=== PATIENT | male | born 1970 | race Caucasian/White ===

== ENCOUNTER → 2017-10-22 | Day surgery (SDC) | payer BC ==
[~2017-10-22] MED LIST: BENICAR HCT 401 EAC1 PO; CRESTOR40 MG PO; HYDROCODONE-AP1 EAC6 PO; METFORMIN HCL500 MG PO; NORVASC10 MG PO; OMEPRAZOLE 20 M20 M1 PO; PIOGLITAZONE15 MG; PLAVIX 75 MG TA75 M1 PO; TRESIBA FL200 UNIT/1 SUBQ; TRICOR145 MG PO; VICTOZA0.6 MG/0.1; VITAMIN D; ZETIA10 MG PO
[2017-10-22 10:03] LABS: HEMATOCRIT 39.4 % (42.0-52.0); HEMOGLOBIN 13.5 gm/dL (14.0-18.0); MCH 31.1 pg (26.0-34.0); MCHC 34.3 g/dL (28.0-37.0); MCV 90.7 fL (80.0-100.0); MPV 8.5 fl. (7.2-11.1); RBC 4.35 mil/uL (4.50-6.00); RDW-CV 13.4 % (10.5-14.5); WBC 8.3 thou/uL (4.0-11.0)
[2017-10-22 10:10] LABS: CALCIUM 9.3 mg/dL (8.5-10.1)
[2017-10-22 10:18] LABS: INR 1.1; PROTIME 10.3 Seconds (9.20-11.50)
--- NOTE | 2017-10-22 12:56 | EKG ---
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: : 1970 Requested By: Jose M Holm Order Number: [id number] Reading MD: Hong Salvador Measurements Intervals [place] Rate: 80 P: 19 VT: 156 QRS: 50 QRSD: 92 T: 37 QT: 369 QTc: 426 Interpretive Statements Sinus rhythm ST elev, probable normal early repol pattern No previous ECG available for comparison Electronically Signed On 10-22-2017 12:55:55 CERTIFIED FIRE INVESTIGATOR by Hong Salvador [email or web address] <ELECTRONICALLY SIGNED> By: Hong Salvador MD, [facility] 10/22/17 1255 1111 [facility] Hong Salvador MD, FACC /EPI
--- NOTE | 2017-10-25 10:54 | S ---
[place] [address] SURGICAL PATH RPT PROCEDURE Name: LINCOLN NICHOLAS Room: [facility]#: [id number] Admission: 10/22/17 Date of : 70 Discharge: Report #: [id number] Path Case #: [id number] PATHOLOGY REPORT COLLECTION DATE: 10/22/2017 RECEIVED DATE: 10/22/2017 SUBMITTING PHYS: Dr. Dony Rahman OTHER PHYS: Dr. Yoandy Norman SPECIMEN(S) RECEIVED: A.Gallbladder with contents * * * * * * * * * * * * FINAL DIAGNOSIS: Gallbladder with contents: - Chronic cholecystitis, cholesterolosis including cholesterol polyp and cholelithiasis. (YUAN:macy; 10/25/2017) PATHOLOGIST: Alex Urrutia M.D. REPORT ELECTRONICALLY SIGNED BY: Alex Urrutia M.D. DATE/TIME: 10/25/2017 10:54 * * * * * * * * * * * * GROSS PATHOLOGY: Received in formalin labeled "L[place] Nicholas, gallbladder with contents," is a 9.6 x 3.9 x 2.4 cm, intact gallbladder with pink-hong, smooth, and partially covered with adhesions serosal surfaces. Opening the gallbladder reveals a toth-brown and velvety mucosa and an average wall thickness of 0.1 cm. There is a single yellow polyp measuring 0.3 x 0.3 cm in the lower neck aspect. Multiple black and gravel-like calculi are present measuring up to 0.5 cm in greatest dimension. Planer [employer] Offbearer sections from the body and fundus are submitted along with the proximal margin in cassette A1. (SDY; 10/22/2017) CLINICAL HISTORY: Gallstones INITIAL CPT CODE(S): A; 01786 Professional services performed by [facility] [address] [place] [address] SURGICAL PATH RPT PROCEDURE Name: LINCOLN NICHOLAS Room: [facility].#: [id number] Admission: 10/22/17 Date of : 70 Discharge: Report #: [id number] Path Case #: [id number] [facility] by [facility] at [address] [place] [address], [facility] [address] [address]. [place] [address] PHONE: [phone] DIRECTOR: Jaret Desai M.D. * * * END OF REPORT * * *
--- NOTE | 2017-11-03 07:49 | OP ---
[facility] [address] [place] [address] OPERATIVE REPORT Name: LINCOLN JEAN Room: [facility]#: [id number] Admission: 10/22/17 Attend Phys: Dony Rahman Discharge: Date of : 70 Report #: [id number] THIS REPORT FOR: //name// CC: Yoandy Rahman DATE OF SERVICE: 10/22/2017 PREOPERATIVE DIAGNOSES: Past history of gallstone pancreatitis and cholelithiasis. POSTOPERATIVE DIAGNOSES: Past history of gallstone pancreatitis and cholelithiasis. OPERATION: Laparoscopic cholecystectomy with intraoperative cholangiogram. SURGEON: Dony Rahman M.D. ANESTHESIA: General. ESTIMATED BLOOD LOSS: Minimal. SPECIMENS: Gallbladder. DESCRIPTION OF PROCEDURE: After informed consent was obtained, the patient was brought to the operating room and placed supine. SCDs were placed and working, preoperative antibiotics were administered and general anesthesia was induced. The abdomen was prepped and draped in the usual sterile fashion. A 10-mm incision was made above the umbilicus. Fascia was incised and a trocar was placed. Pneumoperitoneum was established. Three right upper quadrant 5-mm ports were placed. Gallbladder was grasped and retracted cephalad. Infundibulum was grasped and retracted laterally. I dissected out the cystic duct and the cystic artery. I then made a ductotomy. Cholangiogram catheter was inserted. Cholangiogram was performed. This demonstrated filling of the cystic duct, common hepatic duct, bifurcation of the hepatics, a smooth easy flow into the duodenum as well as the normal common bile duct. There were no filling defects. This was normal. Cholangiogram catheter was removed. The cystic duct was ligated using a clip and a PDS Endoloop. The cystic artery was clipped and ligated leaving a clip on the remaining artery. Gallbladder was then taken off the liver bed with electrocautery. It was placed into an Endopouch and removed. The fascia was then reapproximated with a stamaz-jl-[id number] 0 Vicryl. Skin was closed with 4-0 Monocryl. Incisions were sealed [place] [address] OPERATIVE REPORT Name: LINCOLN JEAN Room: [facility]#: [id number] Admission: 10/22/17 Attend Phys: Dony Rahman Discharge: Date of : 70 Report #: [id number] COMPLICATIONS: None. DISPOSITION: The patient was taken to recovery in satisfactory condition. <ELECTRONICALLY SIGNED> By: Dony Rahman MD 11/03/17 0749 [id number] [id number] Rahman MD /nt
== END | disposition home or self-care (01) ==
LOC: M.SUR 09:38
PROVIDERS: Surgery
DX: K80.10 Calculus of gallbladder with chronic cholecystitis without obstruction (principal); Z79.899 Other long term (current) drug therapy; Z79.891 Long term (current) use of opiate analgesic; Z79.4 Long term (current) use of insulin